=== PATIENT | male | born 1965 | race Caucasian/White ===

== ENCOUNTER 2019-05-20 11:47 | Emergency (ER) | payer OTHER ==
[~2019-05-20] VITALS: Ht 177.8 cm; Wt 115.9 kg
[~2019-05-20 11:47] MED LIST: ASPI-1071 PO; CYCL-1 PO; HCTZ25T PO; LEVO50TA67 PO; LISI40TA4 PO; NOR5T PO; POTA10CA44 PO; SOTA80TA73 PO; TRAM50TA2 PO; ZOC40T PO
[2019-05-20 12:00] VITALS: BP 162/68
[2019-05-20] MEDS ORDERED: methylPREDNISolone sod succ 125mg/2ml vial IM ONE (12:20)
[2019-05-20] MEDS ORDERED: METH4TAB PO (12:28)
== END 2019-05-20 12:52 | disposition home or self-care (01) ==
LOC: ER 11:48
DX: M54.2 Cervicalgia (principal); M54.5 Low back pain; F10.99 Alcohol use, unspecified with unspecified alcohol-induced disorder; Z79.82 Long term (current) use of aspirin; Z79.899 Other long term (current) drug therapy; Y90.9 Presence of alcohol in blood, level not specified
CPT/HCPCS: 96372; 99283; J2930